=== PATIENT | female | born 2005 | race Two or more races ===

== ENCOUNTER 2025-01-19 15:35 | Emergency (ER) | payer MEDICAID ==
[~2025-01-19] VITALS: Ht 170.2 cm; Wt 63.5 kg
[2025-01-19 15:45] VITALS: TEMP 98.2
[2025-01-19 16:25] LABS: PLATELET COUNT (AUTO) 299 K/uL (150-450); RED BLOOD CELL COUNT(AUTO) 4.31 MIL/uL (4.0-5.2); RED CELL DISTRIBUTION WIDTH 11.8 % (11.5-15.0); WHITE BLOOD COUNT (AUTO) 5.2 K/uL (4.3-11.0)
[2025-01-19 16:34] LABS: CALCIUM, SERUM 8.9 mg/dL (8.5-10.1); CREATININE 0.6 mg/dL (0.6-1.3); SODIUM SERUM 139.0 mmol/L (136-145); UREA NITROGEN, BLOOD 10.0 mg/dL (7-18)
[2025-01-19 16:39] LABS: INR 1.05 (0.91-1.10)
[2025-01-19 16:40] LABS: ASPARTATE AMINOTRANSFERASE 11.0 U/L (15-37); TOTAL PROTEIN, SERUM 7.4 g/dL (6.4-8.2)
[2025-01-19] MEDS ORDERED: ACETAMINOPHEN 325 MG TABLET ONE (17:19)
[2025-01-19] MEDS: ACETAMINOPHEN 325 MG TABLET PO ONE (17:20)
[2025-01-19 17:49] LABS: APPEARANCE,URINE CLEAR (CLEAR); BLOOD, URINE Moderate Ery/uL (NEGATIVE); LEUKOCYTE ESTERASE ,URINE Negative (NEGATIVE); NITRITE, URINE NEGATIVE (NEGATIVE); UGLUCOSE Negative (NEGATIVE)
[2025-01-19 17:51] LABS: PREGNANCY TEST URINE QUAL NEGATIVE (NEGATIVE)
[2025-01-19 17:52] LABS: ADD URINE CULTURE NO; SQUAMOUS EPITHELIAL CELL,UR Few /HPF (None Seen)
[2025-01-19] MEDS ORDERED: KETOROLAC TROMETHAMINE 15 MG/ML VIAL ONE (18:25)
[2025-01-19] MEDS: KETOROLAC TROMETHAMINE 15 MG/ML VIAL IM ONE (18:33)
[2025-01-19 18:40] VITALS: BP 115/64; O2SAT 99
== END 2025-01-19 18:35 | disposition home or self-care (01) ==
LOC: ER 15:48
DX: G43.909 Migraine, unspecified, not intractable, without status migrainosus (principal); R20.0 Anesthesia of skin; R20.2 Paresthesia of skin
CPT/HCPCS: 99283; 96372; 85025; 80048; 80076; 81001; 36415; 85730; 84703 ×2; J1885